=== PATIENT | female | born 1960 | race Caucasian/White ===

== ENCOUNTER 2023-09-21 13:26 | Outpatient (CLI) | payer MEDICARE, MEDICAID ==
[~2023-09-21 13:26] MED LIST: CLON0.5T54 PO; DIVA500T9 PO; GABA800T11 PO; HYDR-4353 PO; LANTUS SUBCUT; LITH300C PO; LOSA-415 PO; PRED20TA PO; QUET-1 PO; QUET300T5 PO; SITA1TAB2 PO
== END 2023-09-21 23:59 | disposition home or self-care (01) ==
LOC: RAD 13:26
PROVIDERS: ATTEND Pediatrics Sports Medicine
DX: M47.814 Spondylosis without myelopathy or radiculopathy, thoracic region (principal); M48.04 Spinal stenosis, thoracic region; M25.78 Osteophyte, vertebrae; E04.9 Nontoxic goiter, unspecified; N28.1 Cyst of kidney, acquired; J43.9 Emphysema, unspecified; M54.6 Pain in thoracic spine
CPT/HCPCS: 72128